=== PATIENT | female | born 1935 | race Caucasian/White ===

== ENCOUNTER 2016-07-20 12:33 | Inpatient (IN) | payer MEDICARE ==
--- NOTE | ~2016-07-20 | CT2 ---
[facility] A Service of [facility] RADIOLOGY TEXT RESULTS PATIENT: BELEN YUEN LOCATION: [address] : 36 UNIT #: [id number] AGE: [address]: Stone Johnston MD SEX: F ORDER DR: [id number] [facility] [address] [facility]. [place], [place] [address] [id number] I MR#: [id number] Acc #: [id number] NAME: BELEN YUEN : 1935 SEX: F STUDY DATE/TIME: 07/23/2016 10:31 UNIT: C4 ROOM: [facility] STUDY DESCRIPTION: CT Abd and Pelv W Cont Attending Physician: Stone Johnston M.D. Ordering Physician: Stone Johnston M.D. Primary Care Physician: Haven Rico A.P.R.N. MEDICAL IMAGING REPORT This report is preliminary unless electronic signature is present EXAM CT abdomen and pelvis with contrast INDICATION Ckg-zs-edbxd abdominal pain and nausea for the past year. PROCEDURE Contrast-enhanced CT of the abdomen and pelvis. 100 mL of Isovue-370. COMPARISON 07/04/[address] exam was performed with one or more of the following radiation dose reduction techniques: automatic exposure control, adjustment of mA and/or kV according to patient size, and iterative reconstruction. FINDINGS ABDOMEN WITH CONTRAST: There is dense opacity in both lower lobes with air bronchograms and volume loss. There is a small right pleural effusion. Cardiomegaly. Large hiatal hernia. No liver or splenic mass. Previous cholecystectomy. Common duct is prominent but not significantly changed from the previous study. It measures approximately 8.0 mm. No evidence for an obstructing radiodense stone or mass. Atrophy of the right kidney, stable. Adrenal glands unremarkable. Fatty infiltration of the pancreas. The small bowel loops are prominent measuring up to 3.0 cm with scattered air-fluid levels. No focal transition point. There is a hematoma in the right lower quadrant abdominal wall [facility] RADIOLOGY TEXT RESULTS PATIENT: BELEN YUEN LOCATION: [address] : 36 UNIT #: [id number] AGE: [address]: Stone Johnston MD SEX: F ORDER DR: 8.0 x 3.8 cm. PELVIS WITH CONTRAST: No pelvic mass or fluid. Left hip prosthesis. No aggressive appearing bone lesion. IMPRESSION 1. Right lower quadrant abdominal wall hematoma measuring up to 8.0 cm. 2. Mildly prominent small bowel loops with no focal transition point. It is favored to represent an ileus. Cannot exclude early or partial small bowel obstruction and correlate with any abdominal symptoms. 3. Dense opacity in the lung bases favored to represent atelectasis but infiltrate is not excluded. 4. Large hiatal hernia. 5. Other findings detailed above. Findings were called to the patient's nurse at the time of this dictation. Dictated by... Andrew Dockery M.D. THIS IS AN ELECTRONICALLY VERIFIED REPORT Andrew Dockery M.D. at 07/26/2016 4:52 PM Juan TD: 07/23/2016 13:31 JOB #: [id number] MEDICAL IMAGING REPORT COPY
--- NOTE | ~2016-07-20 | CR72 ---
[facility] A Service of [facility] RADIOLOGY TEXT RESULTS PATIENT: BELEN YUEN LOCATION: [place] [address] : 36 UNIT #: [id number] AGE: [address]: Stone Johnston MD SEX: F ORDER DR: [id number] [facility] [address] [place], [place] [address] [id number] I MR#: [id number] Acc #: [id number] NAME: BELEN YUEN : 1935 SEX: F STUDY DATE/TIME: 07/28/2016 6:31 UNIT: [facility] ROOM: [facility] STUDY DESCRIPTION: CR Chest Single View Portable Attending Physician: Stone Johnston M.D. Ordering Physician: Reggie Chance M.D. Primary Care Physician: Haven Rico A.P.R.N. MEDICAL IMAGING REPORT This report is preliminary unless electronic signature is present EXAM Portable chest, 07/28/2016 HISTORY Shortness of air and respiratory failure for 8 days. Hypertension. COMPARISON Chest, 07/26/2016 FINDINGS Frontal chest demonstrates interval placement of a right-sided PICC line with tip projecting over the mid SVC. No pneumothorax. Cardiomegaly is stable. Bibasilar atelectasis/infiltrate is unchanged. 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 Postsurgical changes of the left humerus are partially imaged. IMPRESSION 1. Placement of a right-sided PICC line with tip projecting over the mid SVC. No pneumothorax. 2. Stable cardiomegaly and bibasilar atelectasis/infiltrate. Dictated by... Yasmani Gilman M.D. THIS IS AN ELECTRONICALLY VERIFIED REPORT Yasmani Gilman M.D. at 07/28/2016 3:54 PM JASS/arina TD: 07/28/2016 10:14 JOB #: [id number] MEDICAL IMAGING REPORT [facility] A Service of [facility] RADIOLOGY TEXT RESULTS PATIENT: BELEN YUEN LOCATION: C5 552-01 : 36 UNIT #: [id number] AGE: [address]: Stone Johnston MD SEX: F ORDER DR: COPY
--- NOTE | ~2016-07-20 | A ---
[facility] Nutrition Therapy DATE: 07/26/16 Patient: BELEN YUEN Physician: JAROCHOOB Address: [address] [place] [address] Room/Bed: [address], Zip: [place] [address] Admit Date: 07/20/16 Date of : 36 Height: 5 0 Weight: 146 66.5 NUTRITIONAL ASSESSMENT: REASON: NPO IN ICU ASSESSMENT (PER RN DURING ROUNDS) PT IS 80 Y.O. FEMALE ADMITTED FOR GALLSTONES PMH: NO RECENT H&P IN [facility]. CHART GONE Anthropometrics: 5'0", WT: 146# (66 KG), BMI: 28.5 Labs: GLU: 136, NA+:129, CA: 8.1, ALB: 2.7 Meds: SOLU-MEDROL, PHENERGAN, REGLAN, FUROSEMIDE, MIRALAX, PROTONIX, KCL I/O & Bowel function: 2941/1138, 2 BMs NOTED Skin Integrity: (R) BUTTOCKS PRESSURE ULCER EDEMA: ABD GENERALIZED EDEMA; PEDAL/AKLE TRACE EDEMA; (R) HIP GENERALIZED EDEMA; (R) UPPER LEG GENERALIZED EDEMA Estimated Nutrition Needs: INCREASED NUTRIENT NEEDS 2' CURRENT CONDITION Assessment: PT OUT OF ROOM AT TIME OF VISIT FOR HIATUS SCAN. PER RN, ?ILEUS AT THIS TIME. PT TRANSFERRED TO ICU ON 07/25/16. 2' RESPIRATORY DISTRESS. PT IS S/P LAP CHOLECYSTECTOMY ON 07/20/16. RD TO FOLLOW. Dx: ALTERED NUTRIENT NEEDS R/T CURRENT CONDITION AEB NPO STATUS. Intervention: 1. NPO Monitoring, Evaluation and Goals: 1. PO INTAKE; PROVIDE AND CONSUME ADEQUATE NUTRITION W/NO C/O N/V/D (PO>50%) 2. LABS; WNL 3. GI; PROMOTE REGULAR GI FUNCTION MONITOR: -DIET ADVANCEMENT -PO INTAKE/APPETITE -WEIGHTS Recommendations: 1. ONCE MEDICALLY FEASIBLE, BEGIN WITH CLEARS AND ADVANCE DIET TOLERATED TO LOW FIBER [facility] Nutrition Therapy DATE: 07/26/16 Patient: BELEN YUEN Physician: CECE Address: [facility] Room/Bed: [address], Zip: [place] [address] Admit Date: 02/21/17 Date of : 36 Height: 5 0 Weight: 146 66.5 IF ILEUS NOT CONFIRMED, ADVANCE DIET TO REGULAR (PREVIOUS DIET) 2. IF PT UNABLE TO TOLERATE PO INTAKE, CONSULT RD FOR RECOMMENDATIONS RD WILL F/U PER PROTOCOL PT IS MODERATELY COMPROMISED Respectfully, LUCA LANDERS MS, RD, LD Food and Nutritional Services [facility] cc: client file
--- NOTE | ~2016-07-20 | US140 ---
[facility] A Service of [facility] & [facility] RADIOLOGY TEXT RESULTS PATIENT: BELEN YUEN LOCATION: [place] [address] : 36 UNIT #: [id number] AGE: [address]: Stone Johnston MD SEX: F ORDER DR: [id number] [facility] [address] [facility] [place], [place] [address] [id number] I MR#: [id number] Acc #: [id number] NAME: BELEN YUEN : 1935 SEX: F STUDY DATE/TIME: 07/30/2016 21:07 UNIT: [facility] ROOM: [facility] STUDY DESCRIPTION: US UE Veins Unilat or Ltd Stdy Attending Physician: Stone Johnston M.D. Ordering Physician: Dave Melton M.D. Primary Care Physician: Haven Rico A.P.R.N. MEDICAL IMAGING REPORT This report is preliminary unless electronic signature is present EXAM Right upper extremity venous ultrasound HISTORY Arm swelling that began last night. FINDINGS The venous system of the right upper extremity is evaluated with grayscale imaging, color flow Doppler, and compression ultrasound. There is flow-limiting compression where appropriate and the internal jugular vein, subclavian vein, axillary vein, brachial vein, and basilic vein. The cephalic vein cannot be identified. IMPRESSION The cephalic vein cannot be identified, but the rest of the venous system appears normal. There is no evidence of deep venous thrombosis. Dictated by... Hood Goodwin M.D. THIS IS AN ELECTRONICALLY VERIFIED REPORT Hood Goodwin M.D. at 07/31/2016 4:33 PM MARIAN/yasmine TD: 07/31/2016 15:21 JOB #: [id number] MEDICAL IMAGING REPORT COPY
--- NOTE | ~2016-07-20 | NM21 ---
[facility] A Service of [facility] & [facility] RADIOLOGY TEXT RESULTS PATIENT: BELEN YUEN LOCATION: [address] : 36 UNIT #: [id number] AGE: [address]: Stone Johnston MD SEX: F ORDER DR: [id number] [facility] [address] [facility]. [place], [place] [address] [id number] I MR#: [id number] Acc #: [id number] NAME: BELEN YUEN : 1935 SEX: F STUDY DATE/TIME: 07/26/2016 6:27 UNIT: [facility] ROOM: [facility] STUDY DESCRIPTION: NM Hepatobiliary W GB Attending Physician: Stone Johnston M.D. Ordering Physician: Dave Melton M.D. Primary Care Physician: Haven Rico A.P.R.N. MEDICAL IMAGING REPORT This report is preliminary unless electronic signature is present EXAM Hepatobiliary scan INDICATIONS Cholecystectomy July 19, 2016, with chronic cholecystitis and cholelithiasis. PROCEDURE Patient administered 5.23 mCi technetium labeled Choletec, imaging of the upper abdomen was performed for [address] from 07/23/2016 FINDINGS The liver shows symmetric extraction and excretion of radiotracer. Activity is seen in the biliary system extending into the bowel. There is no evidence for common duct obstruction. No bile leak. IMPRESSION No evidence for common duct obstruction or bile leak. Dictated by... Andrew Dockery M.D. THIS IS AN ELECTRONICALLY VERIFIED REPORT Andrew Dockery M.D. at 07/26/2016 4:52 PM EED/melonie TD: 07/26/2016 12:53 JOB #: [id number] MEDICAL IMAGING REPORT [facility] A Service [facility] RADIOLOGY TEXT RESULTS PATIENT: BELEN YUEN LOCATION: [address] : 36 UNIT #: [id number] AGE: [address]: Stone Johnston MD SEX: F ORDER DR: COPY
--- NOTE | ~2016-07-20 | CO ---
Unit #: [id number] #: [id number] Patient: BELEN YUEN [id number] [address] [address] [id number] I MR#: [id number] NAME: BELEN YUEN ROOM: 55 Age: 80 Sex: F Admission Date: 07/20/2016 : 1935 Attending Physician: Stone Johnston M.D. Primary Care Physician: Haven Rico A.P.R.N. Consultation Date: 07/30/2016 CONSULTATION REPORT REASON FOR CONSULT Tachyarrhythmia. HISTORY OF PRESENT ILLNESS This is a 80-year-old white female, previously known to our group, with a past medical history of nonobstructive coronary artery disease, status post cardiac catheterization in 01/2005, which revealed left main 10% to 15%. There was some haziness in the LAD, but there was no significant stenosis. Left ventricular ejection fraction was 50% at that time. The patient had a right carotid endarterectomy in 2000. She presented to the hospital on 07/20/2016 due to chronic cholelithiasis and cholecystitis. She underwent a laparoscopic cholecystectomy on 07/20/2016. Postoperatively, she developed some acute respiratory failure due to pneumonia and COPD. She also had some anemia. Cardiology was consulted for an atrial arrhythmia. Upon review of telemetry strips, the patient was found to have multifocal atrial tachycardia. She denies any dizziness or syncope. She has had some occasional palpitations. There are no reports of chest pain. Her shortness of breath has improved mildly, but has not resolved. There are no reports of fever or chills. PAST MEDICAL HISTORY 1. Nonobstructive coronary artery disease, status post cardiac catheterization in 01/2005 at [facility], which revealed left main 10% to 15%. Haziness in the LAD, but no significant stenosis. Left ventricular ejection fraction 50%. 2. History of peripheral arterial disease, status post right carotid endarterectomy in 2000. 3. COPD, on oxygen as needed. 4. Hypertension. 5. GERD. 6. Constipation. 7. Incontinence. 8. Depression. 9. History of TIA. 10. Hiatal hernia. 11. History of stomach ulcer. 12. Iron-deficiency anemia. 13. Arthritis. 14. Back pain with degenerative disk disease and scoliosis. 15. Osteoporosis. 16. Reformed tobacco abuse. Unit #: [id number] #: [id number] Patient: BELEN YUEN PAST SURGICAL HISTORY 1. Cardiac catheterization as noted above. 2. Right carotid endarterectomy. 3. Bilateral total knee replacement. 4. Total left hip replacement. 5. Repair of left humerus fracture. 6. Right hand surgery. 7. Left elbow fracture with pins. 8. T and A. 9. Colonoscopy. 10. Right ankle fracture repair. HOME MEDICATIONS MiraLAX 17 g p.o. at bedtime, oxygen 2 L at bedtime and as needed, trazodone 150 mg p.o. q.h.s., Norvasc 10 mg p.o. daily, omeprazole 20 mg p.o. every evening, hydrocodone/acetaminophen 10/325 mg one tablet p.o. every 4 hours p.r.n. for pain, multivitamin one tablet p.o. daily. ALLERGIES Oxybutynin. SOCIAL HISTORY The patient is a reformed smoker. There are no reports of alcohol or illicit drug use. FAMILY HISTORY Noncontributory. REVIEW OF SYSTEMS 12-point review of systems negative, except for details noted above in HPI. PHYSICAL EXAMINATION VITAL SIGNS: Temperature 97.8, pulse 74, blood pressure 127/59. CONSTITUTIONAL: This is a 80-year-old white female, in no acute distress. SKIN: Warm and dry. NECK: Supple. No jugular vein distention. No hepatojugular reflux. Normal carotid upstrokes. No carotid bruits auscultated. HEART: S1 and S2. Regular rate and rhythm, but tachycardic. No murmurs, rubs, or gallops. LUNGS: Bilateral breath sounds are diminished, especially in the right base. No rales or rhonchi. Respirations even and nonlabored. ABDOMEN: Soft and nondistended. Slightly tender. Positive bowel sounds auscultated x4 quadrants. No ascites noted. EXTREMITIES: Lower extremities have no pretibial pitting edema. DP and PT pulses are 2+. Capillary refill less than 3 seconds. DIAGNOSTIC STUDIES LABORATORY RESULTS: White blood cell count 21.8, hemoglobin 8.9, hematocrit 27.9, platelets 522. Sodium 131, potassium 4.6, chloride 98, CO2 of 24, BUN 34, creatinine 1.2, glucose 87, magnesium 2.0. CARDIOVASCULAR STUDIES: EKG reveals multifocal atrial tachycardia. Telemetry strips revealed paroxysmal supraventricular tachycardia. IMAGING STUDIES: CT of the chest reveals bibasilar pneumonia, calcified abdominal aorta and subclavian arteries. IMPRESSION Unit #: [id number] #: [id number] Patient: BEELN YUEN 1. Respiratory insufficiency secondary to pneumonia. 2. Multifocal atrial tachycardia secondary to respiratory insufficiency. 3. Status post laparoscopic cholecystectomy, 07/20/2016. 4. Anemia. 5. Polycythemia. 6. History of right carotid artery endarterectomy in 2000. 7. History of nonobstructive coronary artery disease, 01/2005. 8. Left ventricular ejection fraction 50%, 2004. 9. Hypertension. PLAN 1. The patient will be started on small dose beta-leslie to help control blood pressure and rhythm. 2. Potassium will be replaced as needed. 3. There are no reports of chest pain. EKG reveals no ischemic pattern. 4. The patient will be placed on IV fluids. BNP will be evaluated tomorrow. 5. Pulmonology is following for pneumonia and COPD. Dictated by... Zuri Mendoza APRN for Shaggy Vicente/vanda TD: 08/02/2016 05:09 JOB #: [id number] CONSULTATION REPORT X X CONSULTATION REPORT
--- NOTE | ~2016-07-20 | CR4 ---
[facility] A Service of [facility] RADIOLOGY TEXT RESULTS PATIENT: BELEN YUEN LOCATION: [facility] : 36 UNIT #: [id number] AGE: [address]: Stone Johnston MD SEX: F ORDER DR: [id number] [facility] [address] [facility]. [place], [place] [address] [id number] I MR#: [id number] Acc #: [id number] NAME: BELEN YUEN : 1935 SEX: F STUDY DATE/TIME: 07/25/2016 8:49 UNIT: [facility] ROOM: [facility] STUDY DESCRIPTION: CR Abdomen Flat Upright or Dec Attending Physician: Stone Johnston M.D. Ordering Physician: Tirso Bernal Jr., M.D. Primary Care Physician: Haven Rico A.P.R.N. MEDICAL IMAGING REPORT This report is preliminary unless electronic signature is present EXAM Flat and upright abdomen series 07/25/2016 HISTORY 80-year-old female with right lower quadrant abdominal wall hematoma. Generalized bowel dilatation noted on CT yesterday. Exam for followup of abdominal distension. TECHNIQUE Flat and upright abdomen series. FINDINGS Apns-zd-ahdymbqg generalized dilatation of air-filled small bowel throughout the central abdomen appears unchanged since CT yesterday. Administered the CT GI contrast material is now present within normal caliber colon, excluding high-grade mechanical small bowel obstruction. Findings most likely represent adynamic ileus. Continued follow up recommended. Surgical clips in the gallbladder fossa. Large hiatal hernia in the lower chest. IMPRESSION 1. Stable diffuse small bowel dilatation, most likely representing adynamic ileus. No convincing evidence of mechanical obstruction. GI contrast from CT yesterday now present within the colon. 2. Very large hiatal hernia. Dictated by... Yon James M.D. [facility] A Service of [facility] & [facility] RADIOLOGY TEXT RESULTS PATIENT: BELEN YUEN LOCATION: [facility] : 36 UNIT #: [id number] AGE: [address]: Stone Johnston MD SEX: F ORDER DR: THIS IS AN ELECTRONICALLY VERIFIED REPORT Yon James M.D. at 07/25/2016 3:07 PM LUANN/jenny TD: 07/25/2016 14:18 JOB #: [id number] MEDICAL IMAGING REPORT COPY
--- NOTE | ~2016-07-20 | CR63 ---
[facility] A Service of [facility] & [facility] RADIOLOGY TEXT RESULTS PATIENT: BELEN YUEN LOCATION: [place] [address] : 36 UNIT #: [id number] AGE: [address]: Stone Johnston MD SEX: F ORDER DR: [id number] [facility] [address] [place], [place] [address] [id number] I MR#: [id number] Acc #: [id number] NAME: BELEN YUEN : 1935 SEX: F STUDY DATE/TIME: 07/23/2016 9:57 UNIT: [facility] ROOM: [facility] STUDY DESCRIPTION: CR Chest 2 View Attending Physician: Stone Johnston M.D. Ordering Physician: Stone Johnston M.D. Primary Care Physician: Haven Rico A.P.R.N. MEDICAL IMAGING REPORT This report is preliminary unless electronic signature is present EXAM Chest x-ray 07/23/2016. HISTORY 80-year-old female with 1-day history shortness of air, cough and fever. Elevated white blood cell count. TECHNIQUE AP and lateral upright chest series. FINDINGS The exam shows elevation right hemidiaphragm with small right pleural effusion and right lung base atelectasis. Tiny left pleural effusion. Mid and upper lungs are clear. The heart is moderately enlarged. Pulmonary vascularity is normal. IMPRESSION 1. Elevation right hemidiaphragm, small right pleural effusion and right lung base atelectasis. Dictated by... Yon James M.D. THIS IS AN ELECTRONICALLY VERIFIED REPORT Yon James M.D. at 07/23/2016 4:53 PM RGW/gz TD: 07/23/2016 11:55 JOB #: [id number] MEDICAL IMAGING REPORT COPY
--- NOTE | ~2016-07-20 | FU ---
[facility] Nutrition Therapy DATE: 07/30/16 Patient: BELEN YUEN Physician: CECE Address: [address] [place] [address] Room/Bed: [address] [place] [address], Zip: [place] [address] Admit Date: 07/20/16 Date of : 36 Height: 5 0 Weight: 131 59.8 NUTRITION MONITORING/FOLLOW-UP: Reason: PT SEEN FOR FOLLOW-UP DX: GALLSTONES Anthropometrics: 5'0", WT: 131# (60 KG), BMI: 25.6 -ADMIT WEIGHT: 138# Labs: GLU: 176, BUN: 28, CA: 8.2, NA+:133, K+:3.4, GFR: 46.1 Meds: NACL, MIRALAX, FUROSEMIDE, NOVOLOG, PROTONIX, PHENERGAN, REGLAN, PREDNISONE I&O's: 3880/4802, 2 BMs NOTED Skin: (R) ARM GENERALIZED EDEMA; BLE TRACE EDEMA ISSUES NOTED Estimated Nutrition Needs: N/A Assessment: CHART REVIEWED AND EVENTS NOTED. PT SEEN FOR FOLLOW-UP. PT REPORTS APPETITE SLOWLY IMPROVING, NOTING NO C/O N/V/D. PT RECEIVING CC+HH DIET. PER RN AND CHART, TPN D/C'D ON 07/29/16. PT REPORTED CONSUMING HALF SANDWICH + BAG OF CHIPS + BITES OF CAKE FOR LUNCH TODAY. THIS RD ENCOURAGED SLOW GRADUAL PO INTAKE + SUPPLEMENT INTAKE, PT AGREED TO GLUCERNA SHAKES BID, RD WILL ORDER. PT ADDED SHE DRINKS BOOST SHAKES AT HOME. PT'S BLOOD SUGARS ELEVATED (STEROIDS) SO RD SUGGESTED GLUCERNA SHAKES. PT REPORTED NO DIET QUESTIONS AT THIS TIME. RD TO FOLLOW. Dx: DECREASED NUTRIENT INTAKE R/T CURRENT CONDITION, ADVANCED AGE AEB PT REPORT ABOVE. -ALTERED NUTRIENT UTILIZATION R/T CURRENT CONDITION AEB NEED FOR THERAPEUTIC DIET ORDER. Intervention: 1. CC+HH DIET 2. GLUCERNA SHAKES BID Monitoring, Evaluation and Goals: GOALS MET 1. PO INTAKE; PROVIDE AND CONSUME ADEQUATE NUTRITION W/NO C/O N/V/D (PO>50%) 2. WEIGHTS; PROMOTE WEIGHT MAINTENANCE 3. LABS; WNL 4. GI; PROMOTE REGULAR GI FUNCTION MONITOR: -PO INTAKE/APPETITE -WEIGHTS [facility] Nutrition Therapy DATE: 07/30/16 Patient: BELEN YUEN Physician: CECE Address: [facility] [address] Room/Bed: [address] [place] [address], Zip: [place] [address] Admit Date: 07/20/16 Date of : 36 Height: 5 0 Weight: 131 59.8 -SUPPLEMENT INTAKE Recommendations: 1. ORDER VANILLA GLUCERNA SHAKES BID W/MEALS 2. APPRECIATE FAMILY AND STAFF TO ENCOURAGE ADEQUATE KCAL AND PROTEIN INTAKE RD WILL F/U PER PROTOCOL PT IS MILDLY COMPROMISED Respectfully, LUCA LANDERS MS, RD, LD Food and Nutritional Services [facility] cc: client file
--- NOTE | ~2016-07-20 | DS ---
Unit #: [id number] #: [id number] Patient: BELEN YUEN [id number] [address] [place], [place] [address] [id number] I MR#: [id number] NAME: BELEN YUEN ROOM: 55 Age: 80 Sex: F Admission Date: 07/20/2016 : 1935 Discharge Date: 08/02/2016 Attending Physician: Stone Johnston M.D. Primary Care Physician: Haven Rico A.P.R.N. DISCHARGE SUMMARY PRINCIPAL DIAGNOSES 1. Cholelithiasis. 2. Cholecystitis. 3. Postoperative pulmonary insufficiency. OPERATION AND PROCEDURE Laparoscopic cholecystectomy. CONSULTANTS 1. Dr. Squires, Pulmonary Medicine. 2. Dr. Gilmore, Cardiology. 3. Nephrology service. CONDITION ON TRANSFER Satisfactory. ACUTE COMPLAINT/HISTORY OF PRESENT ILLNESS The patient is a 80-year-old white female who presented for elective cholecystectomy. She had cholelithiasis. She presents. For a complete history and physical, please refer to the chart. HOSPITAL COURSE The patient was taken to the operating room where she was found to have cholelithiasis and some degree of gallbladder distention and cholecystitis. Laparoscopic cholecystectomy was performed. The patient postoperatively was found to have a drop in hemoglobin. The preoperative hemoglobin was 10.4 and posteriorly it went to 6.6. On further evaluation, the patient was found to have an abdominal wall hematoma most likely secondary to a trocar site. The patient received packed red blood cells and her hemoglobin returned appropriately. The patient developed some respiratory difficulties and she was seen by Dr. Squires of pulmonary medicine. She was placed on antibiotics and with pulmonary treatment and toilet slowly improved. Because of an ileus, a NG tube was placed for decompression. Over the next several days, the patient was begun on TPN for nutritional support. The patient's GI functions slowly improved. Pulmonary toilet continued to improve as well. She was begun on some clear liquids and had her diet advanced. Her nutritional support was weaned. The patient's liver function studies were normal. She was evaluated by cardiology and was felt able to be discharged as did pulmonary medicine. Her abdomen was soft and nontender at the time of discharge. Her incisions were healing nicely. She was discharged home in satisfactory condition to [facility] for rehabilitation. Unit #: [id number] #: [id number] Patient: BELEN YUEN Dictated by... Shaggy Esposito TD: 08/02/2016 12:30 JOB #: [id number] CC: Haven Rico A.P.R.N. DISCHARGE SUMMARY X Leonard Cabrera MD X DISCHARGE SUMMARY
--- NOTE | ~2016-07-20 | OR ---
Unit #: [id number] #: [id number] Patient: BELEN YUEN [id number] [facility] [address] [place] [address]. [place], [place] [address] [id number] I MR#: [id number] NAME: BELEN YUEN ROOM: 465 Date of Procedure: 07/20/2016 Admission Date: 07/20/2016 Surgeon: Stone Johnston M.D. : 1935 Attending Physician: Stone Johnston M.D. Primary Care Physician: Haven Rico A.P.R.N. OPERATIVE REPORT PREOPERATIVE DIAGNOSES Chronic cholecystitis, cholelithiasis. POSTOPERATIVE DIAGNOSES Chronic cholecystitis, cholelithiasis. PROCEDURE PERFORMED Laparoscopic cholecystectomy. ANESTHESIA General endotracheal anesthesia. ESTIMATED BLOOD LOSS Less than 10 mL. INDICATIONS FOR PROCEDURE Ms. Braga is a 80-year-old female, who was sent to the office because of intermittent right upper quadrant pain and persistent nausea. Ultrasound revealed cholelithiasis and a HIDA scan was performed, which showed a depressed ejection fraction of 11%. DESCRIPTION OF PROCEDURE The patient was admitted to [facility], positively identified, and transported to the operating room, and after induction of general endotracheal anesthesia, she received antibiotics per SCIP protocol. She was appropriately positioned and prepped and draped in usual sterile fashion. A 5-mm infraumbilical incision made. Veress needle was placed. Pneumoperitoneum was created. Then, a 5-mm trocar was placed. Laparoscope was introduced into peritoneal cavity. Under direct vision, the epigastric and lateral ports were placed. Gallbladder was distended. An ovarian aspirator was used to aspirate some bile and then the gallbladder could be grasped and elevated. Adhesions were taken down and the infundibulum was retracted laterally. [place] was dissected out clearly identifying the cystic duct, gallbladder, and cystic duct-common duct junction. The cystic duct was small, it was swept upwards and then a single clip was placed in the cystic duct centered to gallbladder and 3 clips were placed distally and the cystic duct was sharply divided. Posteriorly, the cystic artery was doubly clipped proximally and distally and divided. I then dissected the gallbladder liver bed using cautery dissection and once this was freed up from its hepatic attachments, it was brought out through the epigastric port. I irrigated the peritoneal cavity. There was excellent hemostasis. I Unit #: [id number] #: [id number] Patient: BELEN YUEN suctioned the irrigant out. The clips were well positioned. I then closed the epigastric fascial defect with a neoClose device. The closure was airtight. I then reduced the pneumoperitoneum, as I removed laparoscope and trocars. 0.5% Marcaine with epinephrine was infiltrated in each trocar site. The skin was closed with 4-0 Monocryl subcuticular closure and Dermabond skin adhesives. The patient tolerated the procedure well and was transported to recovery in stable condition. Because of her pulmonary status, she will be kept on observation overnight. Intraoperatively, a breathing treatment was given because of wheezing. The patient is oxygen dependent at home. Dictated by... Shaggy Humphreys/vanda TD: 07/21/2016 01:05 JOB #: [id number] OPERATIVE REPORT X Stone Johnston MD X PROCEDURE OPERATIVE NOTE
--- NOTE | ~2016-07-20 | CR72 ---
[facility] A Service of [facility] & [facility] RADIOLOGY TEXT RESULTS PATIENT: BELEN YUEN LOCATION: [facility] 552- : 36 UNIT #: [id number] AGE: [address]: Stone Johnston MD SEX: F ORDER DR: [id number] [facility] [address] [facility]. [place], [place] [address] [id number] I MR#: [id number] Acc #: [id number] NAME: BELEN YUEN : 1935 SEX: F STUDY DATE/TIME: 07/26/2016 5:10 [facility] STUDY DESCRIPTION: CR Chest Single View Portable Attending Physician: Stone Johnston M.D. Ordering Physician: Moses Squires M.D. Primary Care Physician: Haven Rico A.P.R.N. MEDICAL IMAGING REPORT This report is preliminary unless electronic signature is present EXAM Portable AP view of the chest. COMPARISON July 23, 2016, and August 03, 2037, as well as October 04, 2005. INDICATIONS 80-year-old female with respiratory failure for 6 days. Patient is post laparoscopic cholecystectomy on July 20, 2015. FINDINGS No evidence of pneumothorax or pleural effusion. There are patchy increased opacities in the right lung base and right midlung, which could reflect atelectasis, but pneumonia is not excluded. Fracture fixation hardware in the proximal left humerus is again noted. No evidence of hardware complication. There are degenerative changes of the left glenohumeral joint. Calcification of the aortic arch. There is normal heart size. Calcification overlying the right pulmonary apex is likely within the brachiocephalic or possibly the subclavian or right common carotid artery. Abnormal appearance of the right glenohumeral joint is stable. There may have been prior surgical hardware in this location, which has since been explanted. It appears that the right humeral head is likely surgically absent, chronic in appearance. There is marked levoscoliosis of the lumbar spine. IMPRESSION Increased patchy opacities in the right midlung and right lower lobe reflecting atelectasis or pneumonia. No evidence of pneumothorax or significant pleural effusion. Dictated by... Ezequiel Sylvester M.D. [facility] A Service of [facility] RADIOLOGY TEXT RESULTS PATIENT: BELEN YUEN LOCATION: [facility] 552-01 : 36 UNIT #: [id number] AGE: [address]: Stone Johnston MD SEX: F ORDER DR: THIS IS AN ELECTRONICALLY VERIFIED REPORT Ezequiel Sylvester M.D. at 07/29/2016 6:46 PM PURVI/tracy TD: 07/26/2016 10:01 JOB #: [id number] MEDICAL IMAGING REPORT COPY
--- NOTE | ~2016-07-20 | CT55 ---
[facility] A Service of [facility] & [facility] RADIOLOGY TEXT RESULTS PATIENT: BELEN YUEN LOCATION: [place] [address]- : 36 UNIT #: [id number] AGE: [address]: Stone Johnston MD SEX: F ORDER DR: [id number] [facility] [address] [place], [place] [address] [id number] I MR#: [id number] Acc #: [id number] NAME: BELEN YUEN : 1935 SEX: F STUDY DATE/TIME: 07/28/2016 17:20 UNIT: [facility] ROOM: [facility] STUDY DESCRIPTION: CT Chest W Con Attending Physician: Stone Johnston M.D. Ordering Physician: Moses Squires M.D. Primary Care Physician: Haven Rico A.P.R.N. MEDICAL IMAGING REPORT This report is preliminary unless electronic signature is present EXAM CT chest with contrast DATE 07/28/2016 HISTORY Shortness of breath since last week. Right lower lobe atelectasis. COMPARISON AP portable chest 07/28/2016 at 06:31. No prior CT chest at this institution for comparison. PROCEDURE 5 mm axial images through the chest after IV contrast administration. Sagittal and coronal reformatted images were obtained. This CT exam was performed with one or more of the following radiation dose reduction techniques: Automatic exposure control, adjustment of mA and/or kV according to patient size, and iterative reconstruction. FINDINGS Dense mmqva-iujpype-pzof-left basilar consolidations are present. Small bilateral pleural effusions are noted. Patchy ground-glass and alveolar opacities are scattered within bilateral upper lobes and right middle lobe, as well, thought to represent changes of multifocal pneumonia. There is mild generalized cardiac enlargement. Coronary artery calcifications are present. No pericardial effusion is seen. There is a moderate-sized esophageal hiatal hernia. There is severe calcific atherosclerosis in the upper abdominal aorta and within the proximal left renal artery. Cholecystectomy changes are present. Shotty mediastinal lymph nodes are thought to be benign and reactive. There are postsurgical changes of the left humerus with advanced degenerative changes of the shoulders. Upper thoracic curvature toward the right. Thoracolumbar STS. [facility] A Service of [facility] & [facility] RADIOLOGY TEXT RESULTS PATIENT: BELEN YUEN [facility] [id number] : 36 UNIT #: [id number] AGE: [address]: Stone Johnston MD SEX: F ORDER DR: junction curvature toward the left. No acute osseous abnormalities are identified. Small amount of fluid is demonstrated within the right upper quadrant anterior abdominal wall, and may represent the site of previous instrumentation. Cholecystectomy. Right renal atrophy. IMPRESSION 1. Dense bilateral lower lobe jnuaa-ulgjciy-orma-left airspace disease with patchy alveolar opacities scattered throughout both lungs. Findings are favored to represent multifocal pneumonia. Continued radiographic follow up to document resolution recommended. 2. Small bilateral pleural effusions. 3. Mild cardiomegaly with coronary artery calcifications. 4. Moderate esophageal hiatal hernia. 5. Small amount of serpiginous fluid is demonstrated within the anterior wall of the right upper quadrant of the abdomen. Correlate for recent instrumentation in this region. 6. Thoracolumbar scoliosis. 7. Right renal atrophy. 8. Cholecystectomy. 9. Advanced degenerative changes in left shoulder. 10. Advanced calcific atherosclerosis of the upper abdominal aorta, bilateral subclavian arteries. Dictated by... Laurie Kumar M.D. THIS IS AN ELECTRONICALLY VERIFIED REPORT Laurie Kumar M.D. at 07/29/2016 2:42 PM SCARLET/sushant TD: 07/28/2016 22:46 JOB #: [id number] MEDICAL IMAGING REPORT COPY
--- NOTE | ~2016-07-20 | XA166 ---
[facility] A Service of [facility] & [facility] RADIOLOGY TEXT RESULTS PATIENT: BELEN YUEN LOCATION: [address] : 36 UNIT #: [id number] AGE: [address]: Stone Johnston MD SEX: F ORDER DR: [id number] [place] [id number] [facility]. [place], [place] [address] [id number] I MR#: [id number] Acc #: [id number] NAME: BELEN YUEN : 1935 SEX: F STUDY DATE/TIME: 07/26/2016 11:13 UNIT: [facility] ROOM: [facility] STUDY DESCRIPTION: XA PICC Line Placement WO Port Attending Physician: Stone Johnston M.D. Ordering Physician: Dave Melton M.D. Primary Care Physician: Haven Rico A.P.R.N. MEDICAL IMAGING REPORT This report is preliminary unless electronic signature is present EXAM Right-sided PICC line placement INDICATIONS Need for IV access. Patient with chronic cholecystitis. Recent cholecystectomy. PRE-PROCEDURE The procedure was explained to the patient and/or patient floor representative including risks, benefits, potential complications and potential for alternative forms of treatment. Informed consent was obtained, and prior to initiating the procedure a formal timeout procedure was performed. PROCEDURE Using full standard sterile barrier technique, including caps, gowns, gloves, masks, as well as sterile skin preparation and standard sterile draping, the right arm was prepped and draped in the usual fashion, and real-time sterile ultrasound guidance was used to localize an arm vein and to confirm vessel patency. A hard copy ultrasound image was recorded. After local anesthesia with 1% Xylocaine, the vein was punctured using real-time sterile ultrasound guidance, and an 0.018 guidewire was advanced into the superior vena cava, using fluoroscopic guidance. A 5 [place] dual-lumen PICC was then measured and deployed with the tip positioned in the superior vena cava. The position of the line was documented with a radiographic image. The line was secured in place with an adhesive dressing and an antibiotic patch was applied. Total fluoro time was 0.2 minutes. AK was 1 mGy. IMPRESSION Successful placement of a 5 [place] dual-lumen PowerPICC via the right arm under ultrasound and fluoroscopic guidance. [facility] A Service of [facility] RADIOLOGY TEXT RESULTS PATIENT: BELEN YUEN LOCATION: [place] [address]-12 : 36 UNIT #: [id number] AGE: [address]: Stone Johnston MD SEX: F ORDER DR: Dictated by... Kristen Canales M.D. THIS IS AN ELECTRONICALLY VERIFIED REPORT Kristen Canales M.D. at 07/27/2016 5:57 PM SHALOM/arina TD: 07/27/2016 10:00 JOB #: [id number] MEDICAL IMAGING REPORT COPY
--- NOTE | ~2016-07-20 | EKG ---
PATIENT: BELEN YUEN UNIT #: [id number] Ventricular Rate: 75 BPM Atrial Rate: 75 BPM P-R Interval: 192 ms QRS Duration: 96 ms Q-T Interval: 414 ms QTC Calculation(Bezet): 462 ms P [place]: 23 degrees Calculated R [place]: 19 degrees Calculated T [place]: 30 degrees Diagnosis Line: Sinus rhythm with Premature atrial complexes Diagnosis Line: Otherwise normal ECG Diagnosis Line: When compared with ECG of 30-JUL-2016 06:44, Diagnosis Line: Vent. rate has decreased BY 49 BPM Diagnosis Line: ST no longer depressed in Inferior leads Diagnosis Line: Non-specific change in ST segment in Anterior Diagnosis Line: leads Diagnosis Line: T wave inversion no longer evident in Lateral Diagnosis Line: leads Diagnosis Line: Confirmed by ELO IZAGUIRRE MD ([id number]) on 07/31/2016 Diagnosis Line: 6:04:33 PM INTERPRETING MD: DMITRIY BANKS
--- NOTE | ~2016-07-20 | CO ---
Unit #: [id number] #: [id number] Patient: BELEN YUEN [id number] [address] [place], [place] [address] [id number] I MR#: [id number] NAME: BELEN YUEN ROOM: [facility] Age: 80 Sex: F Admission Date: 07/20/2016 : 1935 Attending Physician: Stone Johnston M.D. Primary Care Physician: Haven Rico A.P.R.N. Consultation Date: 07/26/2016 CONSULTATION REPORT REASON FOR CONSULTATION Respiratory failure. HISTORY OF PRESENT ILLNESS A 80-year-old female, who currently cannot add to the history. She does have a history of COPD and was admitted for laparoscopic cholecystectomy and kept overnight. There was anticipation of going to rehab, but apparently she had hypertension, worsening abdominal issues, and then developed shortness of breath and lethargy. Arterial blood gas revealed a mild respiratory acidosis. She was placed on BiPAP. This morning when I came to see her, she had been transferred to the Nuclear Medicine, apparently there is a concern over possible bowel leak. She now is back in the ICU. She is lethargic and will not awaken for me, but two nurses state that just minutes ago she would wake up, knew where she was, who the president was, and was asking for sips of water. PAST MEDICAL HISTORY Unobtainable except for remote histories in the EHR. She apparently has arthritis, possible history of TIA, gastroesophageal reflux, and I suspect COPD. MEDICATIONS Currently, I have placed her on Solu-Medrol and nebulized bronchodilators. Ativan has been ordered, but apparently she has not received any Ativan overnight. MiraLax, Norvasc, Protonix, Lasix, Reglan, IV fluids, trazodone, morphine, Lortab. She does have some Vasotec ordered IV, but it is p.r.n. ALLERGIES Oxybutynin. SOCIAL HISTORY Quite frankly it is limited, in 2004 it was listed in her H and P, that she is not a smoker. FAMILY HISTORY Unobtainable. REVIEW OF SYSTEMS Unobtainable, although the nurses state the only complaint she had a little bit ago was that she was thirsty. PHYSICAL EXAMINATION GENERAL: Reveals a frail elderly-appearing female with nasal cannula Unit #: [id number] #: [id number] Patient: BELEN YUEN oxygen and an NG tube in place. VITAL SIGNS: She had a T-max of 102.4 in 07/24/2016, now afebrile; pulse 92; respiratory rate 16; blood pressure is 176/66. HEENT: Pupils are equal, round, and reactive to light. Sclerae anicteric. Head, atraumatic. Mucous membranes are dry. She has dentures in place. NECK: Supple. No supraclavicular or cervical adenopathy appreciated. Jugular venous pressure is difficult to assess. There is some mild JVD. She does have carotid bruits. CHEST: Decreased breath sounds. No taisha wheeze or stridor or consolidation. CARDIAC: Reveals regular rate and rhythm. She does have a systolic murmur in the aortic region. ABDOMEN: Soft and nontender. No hepatomegaly noted. EXTREMITIES: Reveal no clubbing or cyanosis, no definite edema when I pressed on them she moaned, but she will moan periodically. SKIN: Warm and dry. NEUROLOGIC: She would not cooperate with. DIAGNOSTIC STUDIES IMAGING STUDIES: Chest x-ray on the revealed bilateral atelectasis. Today's chest x-ray shows improvement in her aeration of her bases, but she does have a focal infiltrate right mid lung field and some band atelectasis in right lower lobe. LABORATORY RESULTS: BUN is 19, creatinine is 1.0, sodium is 129. White blood cell count 18.6, hemoglobin 9.5, platelet count 384. Urinalysis on the was unremarkable. No recent cultures, but she had a wound culture in 2012 with MRSA. Arterial blood gas; pH of 7.32, pCO2 of 53, pO2 was 76 and that was at 2 o'clock in the morning. I asked for another blood gas at 8, but that was not performed and she was in Nuclear Medicine. CARDIOVASCULAR STUDIES: Rhythm strips have been sinus. EKG, fairly unremarkable. IMPRESSION 1. Hypercapnic hypoxemic respiratory failure, acute. 2. Pulmonary infiltrates suspect a combination of pneumonia and atelectasis. 3. History of hypertension with elevated blood pressure. 4. Chronic obstructive pulmonary disease. 5. Encephalopathy multifactorial, rule out hypercapnia. 6. Status post laparoscopic cholecystectomy. 7. Anemia. 8. Atelectasis. 9. Limited database. PLAN I will begin antibiotics for pneumonia, maximize pulmonary status, treatment of her hypertension with IV medications until oral medications can be substituted. Follow up results of her HIDA scan. I will discontinue her benzodiazepines until her pulmonary status stabilizes. Thank you very much for allowing me to participate in the care of Ms. Yuen. Unit #: [id number] #: [id number] Patient: BELEN YUEN Dictated by... Moses Squires M.D. ROC/vanda TD: 07/27/2016 02:25 JOB #: [id number] CC: Tirso Bernal Jr., M.D. CONSULTATION REPORT X Moses Squires MD X CONSULTATION REPORT
--- NOTE | ~2016-07-20 | EKG ---
PATIENT: BELEN YUEN UNIT #: [id number] Ventricular Rate: 124 BPM Atrial Rate: 124 BPM P-R Interval: 200 ms QRS Duration: 88 ms Q-T Interval: 312 ms QTC Calculation(Bezet): 448 ms P [place]: -19 degrees Calculated R [place]: 69 degrees Calculated T [place]: 58 degrees Diagnosis Line: Sinus tachycardia with Premature atrial complexes Diagnosis Line: with Aberrant conduction Diagnosis Line: Nonspecific ST and T wave abnormality Diagnosis Line: Abnormal ECG Diagnosis Line: When compared with ECG of 16-JUL-2016 12:41, Diagnosis Line: Aberrant conduction is now Present Diagnosis Line: Vent. rate has increased BY 51 BPM Diagnosis Line: ST now depressed in Inferior leads Diagnosis Line: T wave inversion now evident in Lateral leads Diagnosis Line: Confirmed by WILDA ZAMAN MD ([id number]) on 07/30/2016 Diagnosis Line: 4:45:48 PM INTERPRETING MD: AUSTYN BANKS
--- NOTE | ~2016-07-20 | FU ---
[facility] Nutrition Therapy DATE: 07/27/16 Patient: BELEN YUEN Physician: CECE Address: [address] Room/Bed: [address], Zip: [place] [address] Admit Date: 07/20/16 Date of : 37 Height: 5 0 Weight: 130 59 NUTRITION MONITORING/FOLLOW-UP: Reason: Patient assessed by RD yesterday, this RD asked to leave TPN recs during rounds Anthropometrics: Average wt: 62.8 kg Labs: Reviewed Meds: Reviewed Skin: Reviewed Estimated Nutrition Needs: 9425-4502 kcals per day (20-25 kcals/kg) 69-82 g protein per day (1.1-1.3 g/kg) Fluids consistent with kcal needs or per MD Assessment: Chart reviewed, events noted. Patient remains NPO with NGT to LWS, patient is A/O and complaining of pain this AM. TPN ordered, see recs below. See initial RD note from yesterday for full assessment Recommendations: 1. Advance oral diet as tolerated once NGT removed. TPN to start today per MD orders. RD recs for TPN are as follows. 25% dextrose, 5% amino acid standard formula Goal rate 60 ml/hr to provide: -1224 dextrose kcals (GUR = 4.0) -72 g protein (1.15 g/kg) -1512 total kcals 2. Check triglycerides. If < 400 md/dL cycle 20% 250 ml lipids on M/W/ to prevent fatty acid deficiency. This will provide an additional 500 kcals on lipid days. 3. Closely monitor glucose and replete lytes to WNL prn. Status: Moderate-severe nutrition risk Respectfully, [facility] Nutrition Therapy DATE: 07/27/16 Patient: BELEN YUEN Physician: CECE Address: [facility] Room/Bed: [address], Zip: [place] [address] Admit Date: 07/20/16 Date of : [birth year] Height: 5 0 Weight: [address], LD [facility] cc: client file
[~2016-07-20 12:33] MED LIST: ALPRAZOLAM; ASPIRIN; ATENOLOL; DITROPAN; FAMOTIDINE; HYDROCODON-ACE1 EAC5 PO; LORTAB 10/500 T1 TAB; MEDROL DOSEPAK4 MG PO; MIRALAX17 GM PO; MULTIPLE VITAMI1 T13 PO; NORVASC10 MG PO; OMEPRAZOLE20 M1 PO; OXYGEN; TRAZODONE; TRAZODONE HCL150 MG PO; Z-PAK PO; ZOLOFT
[2016-07-20 13:47] LABS: URINE SOURCE CATH
[2016-07-20 14:18] LABS: URINE APPEARANCE CLEAR; URINE BILIRUBIN NEG (NEG); URINE BLOOD NEG (NEG); URINE COLOR YELLOW; URINE GLUCOSE NEG (NEG); URINE KETONE NEG (NEG); URINE LEUKOCYTE ESTERASE TRACE (NEG); URINE NITRATE NEG (NEG); URINE PH 6.5 (5-8); URINE PROTEIN 1+ (NEG); URINE SPECIFIC GRAVITY 1.016 (1.003-1.035); URINE UROBILINOGEN 0.2 MG/DL (NEG)
[2016-07-20 14:22] LABS: URBCS1 AUWI 0-2 /[HPF] (0-2); URINE BACTERIA AUWI NEG (NEGATIVE); URINE SQUAMOUS EPITHELIAL CELL NONE SEEN /[HPF]
[2016-07-21 03:42] LABS: HEMATOCRIT 26.6 % (35.0-45.0); HEMOGLOBIN 8.3 gm/dL (12.0-16.0); MEAN CELL VOLUME 86.1 FL (83-96); MEAN CORPUSCULAR HEMOGLOBIN 26.8 PG (28-34); MEAN CORPUSCULAR HGB CONC 31.1 g/dL (30-36); MEAN PLATELET VOLUME 10.3 FL (6.5-11.5); RED BLOOD COUNT 3.09 X10e (3.90-5.30); RED CELL DISTRIBUTION WIDTH 23.1 % (11.0-15.5)
[2016-07-21 04:01] LABS: ALBUMIN SERUM 3.1 g/dL (3.5-5.0); BILIRUBIN,TOTAL 0.7 mg/dL (0.2-2.0); CALCIUM SERUM 8.4 mg/dL (8.4-10.2); GLOM FILT RATE Estimated 56.8 mL/min (>60); MAGNESIUM 1.6 mg/dL (1.6-3.0); PHOSPHOROUS 4.3 mg/dL (2.5-4.6); POTASSIUM 4.2 mmol/L (3.5-5.1); PROTEIN TOTAL SERUM 5.5 g/dL (6.0-8.3)
[2016-07-22 03:18] LABS: BASOPHIL% 0.1 % (0-2.5); EOSINOPHIL# 0.2 X10e3 (0-0.7); EOSINOPHIL% 1.2 % (0.0-7.0); HEMATOCRIT 21.2 % (35.0-45.0); LYMPHOCYTE# 0.3 X10e3 (1.0-3.5); LYMPHOCYTE% 1.8 % (17.0-45.0); MEAN CELL VOLUME 85.9 FL (83-96); MEAN CORPUSCULAR HEMOGLOBIN 26.8 PG (28-34); MEAN CORPUSCULAR HGB CONC 31.3 g/dL (30-36); MEAN PLATELET VOLUME 8.8 FL (6.5-11.5); MONOCYTE# 0.8 X10e3 (0-1.0); MONOCYTE% 4.3 % (3.0-12.0); NEUTROPHIL# 16.9 X10e3 (1.5-7.1); NEUTROPHIL% 92.6 % (40-75); PLATELET COUNT 249 X10e3 (140-420); RED BLOOD COUNT 2.46 X10e (3.90-5.30); RED CELL DISTRIBUTION WIDTH 22.8 % (11.0-15.5); WHITE BLOOD COUNT 18.3 X10e3 (4.0-10.5)
[2016-07-22 03:24] LABS: ALBUMIN SERUM 2.8 g/dL (3.5-5.0); BILIRUBIN,TOTAL 0.5 mg/dL (0.2-2.0); CREATININE SERUM 1.2 mg/dL (0.6-1.4); GLOM FILT RATE Estimated 46.1 mL/min (>60); MAGNESIUM 1.5 mg/dL (1.6-3.0); PHOSPHOROUS 3.4 mg/dL (2.5-4.6); POTASSIUM 4.1 mmol/L (3.5-5.1); PROTEIN TOTAL SERUM 5.5 g/dL (6.0-8.3)
[2016-07-22 03:25] LABS: DIFF IND YES; HEMOGLOBIN 6.6 gm/dL (12.0-16.0)
[2016-07-22 03:47] LABS: ANISOCYTOSIS MOD; MICROCYTOSIS MOD; PLATELET ESTIMATE NORMAL (NORMAL)
[2016-07-22 03:48] LABS: HYPOCHROMIA SL; SPHEROCYTE SL; STOMATOCYTE PRESENT
[2016-07-23 04:13] LABS: HEMATOCRIT 31.6 % (35.0-45.0); MEAN CORPUSCULAR HEMOGLOBIN 27.5 PG (28-34); MEAN CORPUSCULAR HGB CONC 32.7 g/dL (30-36); MEAN PLATELET VOLUME 9.2 FL (6.5-11.5); RED BLOOD COUNT 3.76 X10e (3.90-5.30); RED CELL DISTRIBUTION WIDTH 19.8 % (11.0-15.5); WHITE BLOOD COUNT 25.1 X10e3 (4.0-10.5)
[2016-07-23 04:14] LABS: HEMOGLOBIN 10.3 gm/dL (12.0-16.0)
[2016-07-23 04:35] LABS: BUN/CREATININE RATIO 15.83; CALCIUM SERUM 8.4 mg/dL (8.4-10.2); CREATININE SERUM 1.2 mg/dL (0.6-1.4); GLOM FILT RATE Estimated 46.1 mL/min (>60); MAGNESIUM 2.8 mg/dL (1.6-3.0); POTASSIUM 3.7 mmol/L (3.5-5.1)
[2016-07-23 16:13] LABS: URINE SOURCE CLEAN CATCH
[2016-07-23 16:23] LABS: URINE APPEARANCE CLEAR; URINE BILIRUBIN NEG (NEG); URINE BLOOD NEG (NEG); URINE COLOR YELLOW; URINE GLUCOSE NEG (NEG); URINE KETONE NEG (NEG); URINE LEUKOCYTE ESTERASE NEG (NEG); URINE NITRATE NEG (NEG); URINE PH 5.5 (5-8); URINE PROTEIN NEG (NEG); URINE SPECIFIC GRAVITY 1.016 (1.003-1.035); URINE UROBILINOGEN 0.2 MG/DL (NEG)
[2016-07-24 03:24] LABS: HEMATOCRIT 30.7 % (35.0-45.0); HEMOGLOBIN 10.1 gm/dL (12.0-16.0); MEAN CELL VOLUME 84.2 FL (83-96); MEAN CORPUSCULAR HEMOGLOBIN 27.8 PG (28-34); MEAN PLATELET VOLUME 8.9 FL (6.5-11.5); RED BLOOD COUNT 3.64 X10e (3.90-5.30); WHITE BLOOD COUNT 18.4 X10e3 (4.0-10.5)
[2016-07-24 03:49] LABS: BUN/CREATININE RATIO 17.27; CALCIUM SERUM 8.4 mg/dL (8.4-10.2); CREATININE SERUM 1.1 mg/dL (0.6-1.4); GLOM FILT RATE Estimated 50.9 mL/min (>60); POTASSIUM 4.3 mmol/L (3.5-5.1)
[2016-07-26 02:27] LABS: ARTERIAL BLD GAS O2 SATURATION 93.3 % (90.0-100.0); ARTERIAL BLOOD GAS CARBOXY HB 0.9 %sat (0.0-9.0); ARTERIAL BLOOD GAS HCO3 27.4 mmol/L; ARTERIAL BLOOD GAS pH 7.323 (7.350-7.450)
[2016-07-26 02:28] LABS: ARTERIAL BLOOD GAS ALLEN TEST N; ARTERIAL BLOOD GAS ART SITE RIGHT BRACHIAL; ARTERIAL BLOOD GAS DELIVERY NON REBREATHER MASK; ARTERIAL BLOOD GAS PCO2 52.9 mmHg (35.0-45.0); ARTERIAL BLOOD GAS PO2 75.7 mmHg (80.0-100); ARTERIAL DRAW? YES
[2016-07-26 02:46] LABS: BASOPHIL% 0.2 % (0-2.5); DIFF IND YES; EOSINOPHIL# 0.3 X10e3 (0-0.7); EOSINOPHIL% 1.4 % (0.0-7.0); HEMATOCRIT 30.1 % (35.0-45.0); HEMOGLOBIN 9.5 gm/dL (12.0-16.0); LYMPHOCYTE# 0.8 X10e3 (1.0-3.5); LYMPHOCYTE% 4.4 % (17.0-45.0); MEAN CELL VOLUME 84.5 FL (83-96); MEAN CORPUSCULAR HEMOGLOBIN 26.8 PG (28-34); MEAN CORPUSCULAR HGB CONC 31.7 g/dL (30-36); MEAN PLATELET VOLUME 8.4 FL (6.5-11.5); MONOCYTE# 1.5 X10e3 (0-1.0); MONOCYTE% 7.9 % (3.0-12.0); NEUTROPHIL% 86.1 % (40-75); PLATELET COUNT 384 X10e3 (140-420); RED BLOOD COUNT 3.56 X10e (3.90-5.30); RED CELL DISTRIBUTION WIDTH 19.1 % (11.0-15.5); WHITE BLOOD COUNT 18.6 X10e3 (4.0-10.5)
[2016-07-26 03:04] LABS: ALBUMIN SERUM 2.7 g/dL (3.5-5.0); BILIRUBIN,TOTAL 0.6 mg/dL (0.2-2.0); CALCIUM SERUM 8.1 mg/dL (8.4-10.2); GLOM FILT RATE Estimated 56.8 mL/min (>60); POTASSIUM 4.4 mmol/L (3.5-5.1); PROTEIN TOTAL SERUM 6.1 g/dL (6.0-8.3)
[2016-07-26 03:05] LABS: ANISOCYTOSIS MOD; ELLIPTOCYTES PRESENT; OVALOCYTES PRESENT; PLATELET ESTIMATE NORMAL (NORMAL)
[2016-07-26 11:47] LABS: ARTERIAL BLD GAS O2 SATURATION 94.5 % (90.0-100.0); ARTERIAL BLOOD GAS CARBOXY HB 0.6 %sat (0.0-9.0); ARTERIAL BLOOD GAS HCO3 26.5 mmol/L; ARTERIAL BLOOD GAS MET HB 0.9 %sat (0.0-2.0); ARTERIAL BLOOD GAS PCO2 46.7 mmHg (35.0-45.0); ARTERIAL BLOOD GAS pH 7.363 (7.350-7.450)
[2016-07-26 11:48] LABS: ARTERIAL BLOOD GAS ALLEN TEST NORMAL; ARTERIAL BLOOD GAS ART SITE RIGHT RADIAL; ARTERIAL BLOOD GAS DELIVERY NASAL CANNULA; ARTERIAL BLOOD GAS PO2 77.2 mmHg (80.0-100); ARTERIAL DRAW? YES
[2016-07-27 05:39] LABS: BASOPHIL% 0.1 % (0-2.5); HEMATOCRIT 27.5 % (35.0-45.0); HEMOGLOBIN 8.8 gm/dL (12.0-16.0); LYMPHOCYTE# 0.3 X10e3 (1.0-3.5); LYMPHOCYTE% 1.3 % (17.0-45.0); MEAN CELL VOLUME 84.8 FL (83-96); MEAN CORPUSCULAR HEMOGLOBIN 27.3 PG (28-34); MEAN CORPUSCULAR HGB CONC 32.2 g/dL (30-36); MEAN PLATELET VOLUME 8.3 FL (6.5-11.5); MONOCYTE# 0.3 X10e3 (0-1.0); MONOCYTE% 1.2 % (3.0-12.0); NEUTROPHIL% 97.4 % (40-75); PLATELET COUNT 400 X10e3 (140-420); RED BLOOD COUNT 3.24 X10e (3.90-5.30); RED CELL DISTRIBUTION WIDTH 19.5 % (11.0-15.5); WHITE BLOOD COUNT 21.5 X10e3 (4.0-10.5)
[2016-07-27 05:50] LABS: DIFF IND NO
[2016-07-27 06:36] LABS: CALCIUM SERUM 8.1 mg/dL (8.4-10.2); GLOM FILT RATE Estimated 56.8 mL/min (>60)
[2016-07-27 06:38] LABS: POTASSIUM 5.5 mmol/L (3.5-5.1)
[2016-07-28 07:01] LABS: BASOPHIL% 0.1 % (0-2.5); HEMATOCRIT 27.7 % (35.0-45.0); HEMOGLOBIN 8.9 gm/dL (12.0-16.0); LYMPHOCYTE# 0.3 X10e3 (1.0-3.5); LYMPHOCYTE% 1.5 % (17.0-45.0); MEAN CELL VOLUME 84.9 FL (83-96); MEAN CORPUSCULAR HEMOGLOBIN 27.3 PG (28-34); MEAN CORPUSCULAR HGB CONC 32.2 g/dL (30-36); MEAN PLATELET VOLUME 8.2 FL (6.5-11.5); MONOCYTE# 0.4 X10e3 (0-1.0); MONOCYTE% 2.2 % (3.0-12.0); NEUTROPHIL% 96.2 % (40-75); PLATELET COUNT 477 X10e3 (140-420); RED BLOOD COUNT 3.27 X10e (3.90-5.30); RED CELL DISTRIBUTION WIDTH 19.5 % (11.0-15.5); WHITE BLOOD COUNT 19.8 X10e3 (4.0-10.5)
[2016-07-28 07:03] LABS: DIFF IND NO
[2016-07-28 07:29] LABS: BLOOD UREA NITROGEN 25 mg/dL (9-23); BUN/CREATININE RATIO 27.77; CARBON DIOXIDE 25 mmol/L (22-31); CHLORIDE 98 mmol/L (100-111); CREATININE SERUM 0.9 mg/dL (0.6-1.4); GLOM FILT RATE Estimated ABOVE60 mL/min (>60); GLUCOSE FASTING 205 mg/dL (70-110); POTASSIUM 3.8 mmol/L (3.5-5.1); SODIUM 133 mmol/L (135-145)
[2016-07-28 10:28] LABS: MAGNESIUM 1.7 mg/dL (1.6-3.0)
[2016-07-29 06:08] LABS: BUN/CREATININE RATIO 23.33; CALCIUM SERUM 8.2 mg/dL (8.4-10.2); CREATININE SERUM 1.2 mg/dL (0.6-1.4); GLOM FILT RATE Estimated 46.1 mL/min (>60); POTASSIUM 3.4 mmol/L (3.5-5.1)
[2016-07-31 07:24] LABS: HEMATOCRIT 27.9 % (35.0-45.0); HEMOGLOBIN 8.9 gm/dL (12.0-16.0); MEAN CELL VOLUME 85.3 FL (83-96); MEAN CORPUSCULAR HEMOGLOBIN 27.1 PG (28-34); MEAN CORPUSCULAR HGB CONC 31.8 g/dL (30-36); MEAN PLATELET VOLUME 8.2 FL (6.5-11.5); RED BLOOD COUNT 3.26 X10e (3.90-5.30); RED CELL DISTRIBUTION WIDTH 20.2 % (11.0-15.5); WHITE BLOOD COUNT 21.8 X10e3 (4.0-10.5)
[2016-07-31 07:51] LABS: BUN/CREATININE RATIO 28.33; CALCIUM SERUM 8.1 mg/dL (8.4-10.2); CREATININE SERUM 1.2 mg/dL (0.6-1.4); GLOM FILT RATE Estimated 46.1 mL/min (>60); POTASSIUM 4.6 mmol/L (3.5-5.1)
[2016-08-01 05:36] LABS: HEMATOCRIT 25.5 % (35.0-45.0); HEMOGLOBIN 8.1 gm/dL (12.0-16.0); MEAN CELL VOLUME 85.1 FL (83-96); MEAN CORPUSCULAR HEMOGLOBIN 26.8 PG (28-34); MEAN CORPUSCULAR HGB CONC 31.5 g/dL (30-36); MEAN PLATELET VOLUME 7.9 FL (6.5-11.5); RED CELL DISTRIBUTION WIDTH 19.6 % (11.0-15.5); WHITE BLOOD COUNT 20.2 X10e3 (4.0-10.5)
[2016-08-01 06:42] LABS: BUN/CREATININE RATIO 32.5; CALCIUM SERUM 7.8 mg/dL (8.4-10.2); CREATININE SERUM 1.2 mg/dL (0.6-1.4); GLOM FILT RATE Estimated 46.1 mL/min (>60); MAGNESIUM 1.9 mg/dL (1.6-3.0); POTASSIUM 4.7 mmol/L (3.5-5.1)
== END 2016-08-02 16:26 | DRG 417 ==
LOC: CSUR 12:33 → CPACUOF 15:27 → C4C 18:07 → CICCU2 07-26 02:55 → C5B 07-27 19:54
PROVIDERS: Internal Medicine; Internal Medicine Cardiovascular Disease; Specialist; Surgery
PROC: 0FT44ZZ Resection of Gallbladder, Percutaneous Endoscopic Approach (ICD-10-PCS; principal; 2016-07-20 14:30)
PROC: 30233N1 Transfusion of Nonautologous Red Blood Cells into Peripheral Vein, Percutaneous Approach (ICD-10-PCS; 2016-07-22)
PROC: 02HV33Z Insertion of Infusion Device into Superior Vena Cava, Percutaneous Approach (ICD-10-PCS; 2016-07-26)
PROC: B518ZZA Fluoroscopy of Superior Vena Cava, Guidance (ICD-10-PCS; 2016-07-26)
PROC: 0DH67UZ Insertion of Feeding Device into Stomach, Via Natural or Artificial Opening (ICD-10-PCS; 2016-07-27)
DX: K80.10 Calculus of gallbladder with chronic cholecystitis without obstruction (principal); J96.02 Acute respiratory failure with hypercapnia; J18.9 Pneumonia, unspecified organism; G92 Toxic encephalopathy; J96.01 Acute respiratory failure with hypoxia; K56.7 Ileus, unspecified; J44.0 Chronic obstructive pulmonary disease with (acute) lower respiratory infection; J44.1 Chronic obstructive pulmonary disease with (acute) exacerbation; J98.11 Atelectasis; I47.1 Supraventricular tachycardia; D50.0 Iron deficiency anemia secondary to blood loss (chronic); Y83.8 Other surgical procedures as the cause of abnormal reaction of the patient, or of later complication, without mention of misadventure at the time of the procedure; M81.0 Age-related osteoporosis without current pathological fracture; Z87.891 Personal history of nicotine dependence; I25.10 Atherosclerotic heart disease of native coronary artery without angina pectoris; I10 Essential (primary) hypertension; K21.9 Gastro-esophageal reflux disease without esophagitis; M41.9 Scoliosis, unspecified; D75.1 Secondary polycythemia; F32.9 Major depressive disorder, single episode, unspecified; E87.6 Hypokalemia; M79.81 Nontraumatic hematoma of soft tissue; E87.5 Hyperkalemia
CPT/HCPCS: 36600; 71010; 71020; 71260; 74020; 74177; 76937; 77001; 78226; 80048; 80053; 80202; 81003; 82308; 82803; 82947; 83735; 84100; 85025; 85027; 86850; 86900; 86901; 86923; 87070; 87077; 87086; 87186; 87205; 87493; 88304; 93005; 93971; 94010; 94640; 94660; 94760; 97110; 97116; 97163; 97166; 97168; 97530; 97535; A9537; C1751; C9113; G0238; G8978-GP; G8979-GP; G8987-GO; G8988-GO; J0330; J0360; J0690; J0696; J1650; J1815; J1940; J2060; J2270; J2405; J2543; J2550; J2710; J2765; J2920; J3010; J3370; J3475; J3480; P9016; Q9967